=== PATIENT | female | born 1940 | race Caucasian/White ===

== ENCOUNTER 2017-12-23 05:53 | Inpatient (IN) | payer MEDICARE, MEDICAID ==
--- NOTE | 2017-12-23 06:55 | ED Physician Chart ---
ED Chief Complaint/HPI - Patient Information Date Seen:: 12/23/17 Time Seen:: 06:51 Chief Complaint:: agitation History of Present Illness:: 77 yr old male with copd htn anxiety schizo dementia here for increased agitation Allergies:: Allergies Allergy/AdvReac Type Severity Reaction Status Date / Time No Known Allergies Allergy Verified 12/23/17 06:06 Vitals:: Vital Signs - 8 hr 12/23/17 06:00 Temp 96.3 F HR 62 RR 14 BP 174/83 O2 Sat % 97 ED Review of Systems - Review of Systems General/Constitutional: No fever, No chills Head: No headache Eyes: No loss of vision ENT: No earache Neck: No neck pain Cardio Vascular: No chest pain Pulmonary: No SOB GI: No vomiting, No diarrhea G/U: No dysuria Musculoskeletal: No bone or joint pain Endocrine: No polyuria Psychiatric: Prior psych history Hematopoietic: No bruising Allergic/Immuno: No urticaria Neurological: No syncope ED Past Medical History - Past Medical History Past Medical History: HTN, Dyslipidemia, Dementia, Other (schizo) Family Medical History - Family Member Mother History Unknown: Yes ED Physical Exam - Physical Examination General/Constitutional: Well-developed, well-nourished Head: Atraumatic Eyes: Lids, conjuctiva normal ENMT: External ears, nose nl Neck: Nontender Respiratory: Nl effort/Exclusion Cardio Vascular: RRR GI: No organomegaly : No CVA tenderness Extremities: No tenderness or effusion Neuro/Psych: No focal deficits Misc: Normal back ED Assessment - Assessment General Assessment: dementia [facility] ED Septic Shock - . Is Septic Shock (SBP<90, OR Lactate>4 mmol\L) present?: No - <6hrs of presentation: Vital Signs: Vital Signs - 8 hr 12/23/17 06:00 Temp 96.3 F HR 62 RR 14 BP 174/83 O2 Sat % 97 ED Reassessment (Disposition) - Reassessment Reassessment Condition:: Unchanged - Diagnosis Diagnosis:: dementia agitation - Patient Disposition Discharge/Transfer:: Acute Care w/in this hosp Admitted to:: Med/Surg Condition at Disposition:: Stable
[2017-12-23 07:15] LABS: % BASOPHILS 0.3 % (0.0-2.0); % EOSINOPHILS 2.7 % (0.0-5.0); % LYMPHOCYTES 20.5 % (20.0-50.0); % MONOCYTES 7.3 % (2.0-10.0); % NEUTROPHILS 69.2 % (40.0-80.0); EOSINOPHILE ABSOLUTE 0.2 Th/cmm (0.1-0.4); HEMATOCRIT 46.5 % (41.0-60); HEMOGLOBIN 15.8 gm/dL (12-16); LYMPHOCYTE ABSOLUTE 1.5 Th/cmm (1.5-3.0); MEAN CELL VOLUME 83.1 fl (81-100); MEAN CORPUSCULAR HEMOGLOBIN 28.3 pg (27.0-31.0); MEAN PLATELET VOLUME 7.4 fl; MONOCYTE ABSOLUTE 0.5 Th/cmm (0.3-1.0); PLATELET COUNT 239 Th/cmm (150-400); RED CELL DISTRIBUTION WIDTH 13.4 % (11.5-20.0); WHITE BLOOD COUNT 7.2 Th/cmm (4.8-10.8)
[2017-12-23 08:12] LABS: ANION GAP 13.7 (7.0-16.0); BUN - UREA NITROGEN 24 mg/dL (7-25); CALCIUM SERUM 9.2 mg/dL (8.6-10.3); CARBON DIOXIDE 24.9 mEq/L (21.0-31.0); CHLORIDE 105 mEq/L (98-107); CREATININE - SERUM 0.9 mg/dL (0.6-1.2); GLUCOSE 94 mg/dL (70-105); POTASSIUM SERUM 3.6 mEq/L (3.5-5.1); SODIUM SERUM 140 mEq/L (136-145)
[2017-12-23 12:05] VITALS: BP 177/79
[2017-12-23 12:34] LABS: CHOLESTEROL 204 mg/dL (<200); HDL -HIGH DENSITY LIPOPROTEIN 61 mg/dL (23-92); TRIGLYCERIDES 100 mg/dL (<150)
[2017-12-23] MEDS: Calcium Carb/Vit D 500 mg/200 U Tab PO SCH (17:01)
--- NOTE | 2017-12-24 01:42 | Psychiatric Evaluation ---
DATE OF SERVICE: 12/23/2017 PSYCHIATRIC EVALUATION AND EXAMINATION IDENTIFYING DATA: The patient is a 77-year-old woman admitted from [facility]. CHIEF COMPLAINT: "I do not know, my name is not Yolie." HISTORY OF PRESENT ILLNESS: This is the first psychiatric hospitalization to for this patient, who has been admitted over here from [facility] for acute agitation. As per the information, the patient is reported to have been getting easily agitated, screaming, and yelling and the patient has been on psychotropic medications, but the patient has been still having the problems in accepting medications. The patient's sleep and appetite prior to the hospitalization are reported to be poor. Review of the chart indicated that the patient has been getting the Haldol Decanoate along with olanzapine prior to the hospitalization. Even with these medications, the patient has been having difficult time to cope with the stress. PAST PSYCHIATRIC HISTORY: The patient has been denying that she had been on any medications in the past. MEDICAL HISTORY AND PHYSICAL EXAMINATION: Requested to be done by Dr. Gonzalez. SUBSTANCE ABUSE HISTORY: None. PHYSICAL OR SEXUAL ABUSE HISTORY: None. LEGAL PROBLEMS: None at this time. STRENGTH AND ASSETS: The patient is motivated. MENTAL STATUS EXAMINATION: The patient is a 77-year-old woman, thin built, superficially cooperative. Eye contact is poor. Mood is noted to be irritable. Affect is constricted. Insight and judgment at this time are noted to be still impaired. Impulse control is noted to be very poor. Coping skills are also noted to be very poor. The patient has been having difficult time to cope with the stress. The patient is very paranoid at this time and is getting easily agitated. The patient is also having problem with short-term as well as long-term memory deficits. The patient's behavior is a clear danger to self and others. DIAGNOSTIC IMPRESSION: AXIS IA: Schizophrenia, chronic paranoid type. AXIS IB. Dementia and behavioral change, secondary trait. IMMEDIATE TREATMENT PLAN: The patient is going to be observed on inpatient unit, provided with supportive psychotherapy. The patient is going to be closely monitored. Once stabilized, the patient is going to be discharged to [facility] to be followed up on an outpatient basis. [facility]# [id number]
[2017-12-24] MEDS: Calcium Carb/Vit D 500 mg/200 U Tab PO SCH ×2 (08:31→16:15)
--- NOTE | 2017-12-24 09:07 | History and Physical ---
History of Present Illness - HPI Chief Complaint: Increased in agitation HPI: Patient was send from SNF for evaluation due to increased in agitation. Vital Signs: Last Vital Signs Temp 97.1 F 12/24/17 06:35 Pulse 60 12/24/17 08:34 Resp 18 12/24/17 06:35 BP 151/74 12/24/17 08:34 Pulse Ox 96 12/24/17 06:35 Past Medical History Cardiovascular: Report: CAD, HTN Pulmonary: Report: No Pertinent Hx [employer]ING [employer]: Report: Dementia GI: Report: No Pertinent Hx Psych: Report: Schizophrenia Musculoskeletal: Report: No Pertinent Hx Rheumatologic: Report: No pertinent Hx Infectious Disease: Report: No Pertinent Hx Renal/: Report: No Pertinent Hx Dermatology: Report: No Pertinent Hx - Past Surgical History Past Surgical History: No pertinent Hx Family Medical History - Family Member Mother History Unknown: Yes Ethnicity: Unknown Living Status: Unknown Hx Family Cancer: (unknown) Hx Family Coronary Artery Disease: (unknown) Hx Family Congestive Heart Failure: (unknown) Hx Family Hypertension: (unknown) Hx Family Stroke: (unknown) Hx Family Diabetes: (unknown) Hx Family Seizures: (unknown) Hx Family Dementia: (unknown) Hx Family AIDS: (unknown) Hx Family COPD: (unknown) Hx Family Hepatitis: (unknown) Hx Family Psychiatric Problems: (unknown) Hx Family Tuberculosis: (unknown) Social History Smoke: No Alcohol: None Drugs: None Lives: Longterm Domestic Violence: Negative - Medications Home Medications: Home Medication Medication Instructions Recorded Type Amino Acids/Protein Hydrolys 30 ml PO DAILY 12/23/17 History [Pro-Stat Sugar Free 30 ml] Calcium Carbonate/Vitamin D3 1 tab PO BID 12/23/17 History [Oyster Shell 500-Vit D3 200 Tb] Docusate Sodium [Dulcolax Stool 100 mg PO BID 12/23/17 History Softener] Donepezil HCl [Aricept] 10 mg PO HS 12/23/17 History Haloperidol Decanoate [Haldol Dec] 12.5 mg IM [id number] 12/23/17 History Lactose-Reduced Food [Ensure Plus 240 ml PO BID 12/23/17 History 240 ml] Memantine [Namenda] 10 mg PO BID 12/23/17 History OLANZapine [ZyPREXA] 2.5 mg PO HS 12/23/17 History Simvastatin [Zocor] 10 mg PO HS 12/23/17 History amLODIPine Besylate [Norvasc] 5 mg PO DAILY 12/23/17 History - Allergies Allergies/Adverse Reactions: Allergies Allergy/AdvReac Type Severity Reaction Status Date / Time No Known Allergies Allergy Verified 12/23/17 06:06 Review of Systems - Review of Systems Constitutional: Report: No Significant Eyes: Report: No Significant ENT: Report: No Significant Respiratory: Report: No Significant Cardiovascular: Report: No Significant Gastrointestinal: Report: No Significant Genitourinary: Report: No Significant Musculoskeletal: Report: No Significant Skin: Report: No Significant Neurological: Report: No Significant Physical Exam - Physical Exam HEENT: Report: Ears Nose Throat within normal limits Neck: Report: Within normal limits Cardiovascular Systems: Report: Regular, Rate and Rhythm Respiratory: Report: Breath Sounds are within normal limits Abdomen: Report: Non-tender to palpation Back: Report: Inspection of back is within normal limits. Extremities: Report: Non-tender to palpation. Skin: Report: Color of skin is within normal limits Neuro/Psych: Report: Disoriented to name time or place - Lab Results All Lab Results last 24 hours: Laboratory Results - last 24 hr 12/23/17 12/23/17 07:09 12:01 Triglycerides 100 Cholesterol 204 H LDL Cholesterol Direct 111 HDL Cholesterol 61 TSH 2.08 - Assessment Assessment: Patient is awake, alert, calm, confused, not oriented. Dx: increased in agitation, Dementia, Schizophrenia, Dyslipemia. - Plan Plan: Patient is follow by Psychiatry, continue with SNF meds. Will continue to monitor.
--- NOTE | 2017-12-25 01:12 | Progress Notes ---
DATE: 12/24/2017 SUBJECTIVE: Staff was spoken to. The patient is interviewed. Mood is noted to be irritable. Affect is constricted. Insight and judgment at this time are noted to be still impaired. Impulse control is little bit poor. Coping skills are noted to be a little bit poor. The patient is not making much sense. The patient has been having difficult time to cope with the stress. ASSESSMENT: The patient is still grossly psychotic and demented. PLAN: To continue the patient with the supportive therapy and follow up. JOB# [id number]
[2017-12-25] MEDS: Calcium Carb/Vit D 500 mg/200 U Tab PO SCH ×2 (09:16→16:52)
--- NOTE | 2017-12-25 10:23 | General Progress Note ---
Subjective - Review of Systems Service Date: 12/25/17 Subjective: Patient is confused Objective - Results Result Diagrams: 12/23/17 07:09 12/23/17 07:09 Recent Labs: Laboratory Last Values WBC 7.2 Th/cmm (4.8-10.8) 12/23/17 07:09 RBC 5.60 Mil/cmm (3.80-5.20) H 12/23/17 07:09 Hgb 15.8 gm/dL (12-16) 12/23/17 07:09 Hct 46.5 % (41.0-60) 12/23/17 07:09 MCV 83.1 fl (81-100) 12/23/17 07:09 MCH 28.3 pg (27.0-31.0) 12/23/17 07:09 MCHC Differential 34.0 pg (28.0-36.0) 12/23/17 07:09 RDW 13.4 % (11.5-20.0) 12/23/17 07:09 Plt Count 239 Th/cmm (150-400) 12/23/17 07:09 MPV 7.4 fl 12/23/17 07:09 Neutrophils % 69.2 % (40.0-80.0) 12/23/17 07:09 Lymphocytes % 20.5 % (20.0-50.0) 12/23/17 07:09 Monocytes % 7.3 % (2.0-10.0) 12/23/17 07:09 Eosinophils % 2.7 % (0.0-5.0) 12/23/17 07:09 Basophils % 0.3 % (0.0-2.0) 12/23/17 07:09 Sodium 140 mEq/L (136-145) 12/23/17 07:09 Potassium 3.6 mEq/L (3.5-5.1) 12/23/17 07:09 Chloride 105 mEq/L (98-107) 12/23/17 07:09 Carbon Dioxide 24.9 mEq/L (21.0-31.0) 12/23/17 07:09 Anion Gap 13.7 (7.0-16.0) 12/23/17 07:09 BUN 24 mg/dL (7-25) 12/23/17 07:09 Creatinine 0.9 mg/dL (0.6-1.2) 12/23/17 07:09 Est GFR ( Amer) TNP 12/23/17 07:09 Est GFR (Non-Af Amer) TNP 12/23/17 07:09 BUN/Creatinine Ratio 26.7 12/23/17 07:09 Glucose 94 mg/dL (70-105) 12/23/17 07:09 Calcium 9.2 mg/dL (8.6-10.3) 12/23/17 07:09 Triglycerides 100 mg/dL (<150) 12/23/17 12:01 Cholesterol 204 mg/dL (<200) H 12/23/17 12:01 LDL Cholesterol Direct 111 mg/dL (75-193) 12/23/17 12:01 HDL Cholesterol 61 mg/dL (23-92) 12/23/17 12:01 TSH 2.08 uIU/ml (0.34-5.60) 12/23/17 07:09 - Physical Exam Vitals and I&O: Vital Signs Temp 97 F 12/25/17 06:47 Pulse 60 12/25/17 06:47 Resp 19 12/25/17 06:47 BP 149/82 12/25/17 06:47 Pulse Ox 94 12/25/17 06:47 Intake & Output 12/24/17 12/25/17 12/25/17 18:59 06:59 18:59 Intake Total 900 120 Output Total 3 Balance 897 120 Intake: Oral 900 120 Output: Urine 3 Stool 0 Other: # Voids 3 Active Medications: Current Medications Amlodipine Besylate (Norvasc) 5 mg PO DAILY [facility] Stop: 02/22/18 08:59 Last Admin: 12/24/17 08:34 Dose: 5 mg Calcium/Vitamin D (Oscal W/Vitamin D) 1 tab PO BID [facility] Stop: 02/21/18 16:59 Last Admin: 12/25/17 09:16 Dose: 1 tab Docusate Sodium (Colace) 100 mg PO BID [facility] Stop: 02/21/18 16:59 Last Admin: 12/25/17 09:16 Dose: 100 mg Haloperidol Decanoate (Haldol Dec) 12.5 mg IM [id number] [facility]; Protocol Stop: 03/06/18 08:59 Memantine (Namenda) 10 mg PO BID [facility] Stop: 02/21/18 16:59 Last Admin: 12/25/17 09:16 Dose: 10 mg Olanzapine (Zyprexa) 2.5 mg PO HS [facility]; Protocol Stop: 02/21/18 20:59 Last Admin: 12/24/17 21:00 Dose: 2.5 mg Simvastatin (Zocor) 10 mg PO HS [facility]HAEL; Protocol Stop: 02/21/18 20:59 Last Admin: 12/24/17 21:00 Dose: 10 mg General: Alert HEENT: Atraumatic Neck: Supple Cardiovascular: Regular rate Abdomen: Bowel sounds Extremities: Other (No edema) Neurological: Other (Unestable gait) Skin: Other (Warm and dry) Psych/Mental Status: Other (Confused) Assessment/Plan - Assessment Assessment: Patient is awake, alert, calm, confused, not oriented. Dx: increased in agitation, Dementia, Schizophrenia, Dyslipemia. - Plan Plan: Patient is follow by Psychiatry, continue with SNF meds. Will continue to monitor.
--- NOTE | 2017-12-25 13:15 | Progress Notes ---
DATE: 12/25/2017 SUBJECTIVE: Staff was spoken to. The patient is interviewed. Mood is noted to be irritable. Affect is constricted. The patient has short-term as well as long-term memory deficits. Coping skills are noted to still poor at this time. The patient has paranoia. The patient is isolative, withdrawn with no interest in participating in any of the groups. The patient is not ready to be discharged to a lower level of care yet. JOB# [id number]
--- NOTE | 2017-12-26 01:44 | Consultation ---
DATE OF CONSULTATION: 12/24/2017 REFERRING PHYSICIAN: Dr. Kumar. TYPE OF CONSULTATION: Psychology. HISTORY OF PRESENT ILLNESS: The patient is a 77-year-old female. The following is by review of the medical record and by patient's self report. The patient is being admitted from [facility] due to acute agitation. The staff at the patient's facility report the patient has been getting easily agitated with yelling episodes and refusing medications. Upon interview, the patient states that she does not understand why she is being hospitalized. The patient denied any suicidal ideation, plan or intention. The patient presents as confused and disoriented. PAST MEDICAL HISTORY: Please see history and physical by Dr. Gonzalez. PAST PSYCHIATRIC HISTORY: Records are unavailable. SUBSTANCE ABUSE HISTORY: The patient denies any history. PSYCHOSOCIAL HISTORY: The patient did not answer questions about occupational, educational history or christianity affiliation. The patient did not answer questions about history of physical or sexual abuse. The patient states no current legal problems. The patient did not answer questions about family relationships or her support system. MENTAL STATUS EXAMINATION: The patient appears to be her stated age. The patient is frail with poor eye contact. Attitude is superficially cooperative. Mood is irritable. Affect is constricted. Speech is delayed. Thought process shows to be confused. The patient denied any auditory or visual hallucinations or delusions; however, the patient is verbalizing possible paranoid ideation. The patient's behavior is easily agitated. The patient denied any suicidal ideation, plan or intention. Impulse control is limited. Concentration is poor. Sensorium is alert and oriented to self only. The patient did not participate in the memory assessment; however, immediate and short term memory appeared to be impaired. The patient did not participate in the interpretation of proverbs. Insight is poor. Judgment is compromised. DIAGNOSTIC IMPRESSION: AXIS I: 1. Schizophrenia, chronic, paranoid type. 2. Dementia with behavioral disturbance. AXIS II: Deferred. AXIS III: Per Dr. Gonzalez. TREATMENT PLAN: The patient has been seen by Dr. Kumar for psychiatric evaluation and for the management of the patient's psychotropic medications. We will provide supportive psychotherapy to include reality orientation, differentiation and integration. We will provide de-escalation as well as stress management to increase the patient's frustration tolerance as well as to decrease the patient's agitation. We will encourage the patient to verbalize her concerns versus verbally acting out. We will encourage the patient to be able to demonstrate emotional and self-regulation prior to her discharge. We will provide coping strategies for phase of life issues as well as for chronic severe mental illness. Thank you, Dr. Kumar, for this consult and the opportunity to participate in this patient's care. JOB# [id number] SHAN
--- NOTE | 2017-12-26 08:57 | General Progress Note ---
Subjective - Review of Systems Service Date: 12/26/17 Subjective: Patient is confused Objective - Results Result Diagrams: 12/23/17 07:09 12/23/17 07:09 Recent Labs: Laboratory Last Values WBC 7.2 Th/cmm (4.8-10.8) 12/23/17 07:09 RBC 5.60 Mil/cmm (3.80-5.20) H 12/23/17 07:09 Hgb 15.8 gm/dL (12-16) 12/23/17 07:09 Hct 46.5 % (41.0-60) 12/23/17 07:09 MCV 83.1 fl (81-100) 12/23/17 07:09 MCH 28.3 pg (27.0-31.0) 12/23/17 07:09 MCHC Differential 34.0 pg (28.0-36.0) 12/23/17 07:09 RDW 13.4 % (11.5-20.0) 12/23/17 07:09 Plt Count 239 Th/cmm (150-400) 12/23/17 07:09 MPV 7.4 fl 12/23/17 07:09 Neutrophils % 69.2 % (40.0-80.0) 12/23/17 07:09 Lymphocytes % 20.5 % (20.0-50.0) 12/23/17 07:09 Monocytes % 7.3 % (2.0-10.0) 12/23/17 07:09 Eosinophils % 2.7 % (0.0-5.0) 12/23/17 07:09 Basophils % 0.3 % (0.0-2.0) 12/23/17 07:09 Sodium 140 mEq/L (136-145) 12/23/17 07:09 Potassium 3.6 mEq/L (3.5-5.1) 12/23/17 07:09 Chloride 105 mEq/L (98-107) 12/23/17 07:09 Carbon Dioxide 24.9 mEq/L (21.0-31.0) 12/23/17 07:09 Anion Gap 13.7 (7.0-16.0) 12/23/17 07:09 BUN 24 mg/dL (7-25) 12/23/17 07:09 Creatinine 0.9 mg/dL (0.6-1.2) 12/23/17 07:09 Est GFR ( Amer) TNP 12/23/17 07:09 Est GFR (Non-Af Amer) TNP 12/23/17 07:09 BUN/Creatinine Ratio 26.7 12/23/17 07:09 Glucose 94 mg/dL (70-105) 12/23/17 07:09 Calcium 9.2 mg/dL (8.6-10.3) 12/23/17 07:09 Triglycerides 100 mg/dL (<150) 12/23/17 12:01 Cholesterol 204 mg/dL (<200) H 12/23/17 12:01 LDL Cholesterol Direct 111 mg/dL (75-193) 12/23/17 12:01 HDL Cholesterol 61 mg/dL (23-92) 12/23/17 12:01 TSH 2.08 uIU/ml (0.34-5.60) 12/23/17 07:09 - Physical Exam Vitals and I&O: Vital Signs Temp 97.9 F 12/26/17 06:51 Pulse 56 12/26/17 06:51 Resp 19 12/26/17 06:51 BP 156/74 12/26/17 06:51 Pulse Ox 97 12/26/17 06:51 Intake & Output 12/25/17 12/26/17 12/26/17 18:59 06:59 18:59 Intake Total 960 480 Balance 960 480 Intake: Oral 960 480 Other: # Voids 4 1 # Bowel Movements 1 Active Medications: Current Medications Amlodipine Besylate (Norvasc) 5 mg PO DAILY [facility] Stop: 02/22/18 08:59 Last Admin: 12/25/17 12:49 Dose: Not Given Calcium/Vitamin D (Oscal W/Vitamin D) 1 tab PO BID [facility] Stop: 02/21/18 16:59 Last Admin: 12/25/17 16:52 Dose: 1 tab Docusate Sodium (Colace) 100 mg PO BID [facility] Stop: 02/21/18 16:59 Last Admin: 12/25/17 16:52 Dose: 100 mg Haloperidol Decanoate (Haldol Dec) 12.5 mg IM [id number] [facility]; Protocol Stop: 03/06/18 08:59 Memantine (Namenda) 10 mg PO BID [facility] Stop: 02/21/18 16:59 Last Admin: 12/25/17 16:52 Dose: 10 mg Olanzapine (Zyprexa) 2.5 mg PO HS [facility]; Protocol Stop: 02/21/18 20:59 Last Admin: 12/25/17 20:51 Dose: 2.5 mg Simvastatin (Zocor) 10 mg PO HS [facility]; Protocol Stop: 02/21/18 20:59 Last Admin: 12/25/17 20:51 Dose: 10 mg General: Alert HEENT: Atraumatic Neck: Supple Cardiovascular: Regular rate Abdomen: Bowel sounds Extremities: Other (No edema) Neurological: Other (Unestable gait) Skin: Other (Warm and dry) Psych/Mental Status: Other (Confused) Assessment/Plan - Assessment Assessment: Patient is awake, alert, calm, confused, not oriented. Dx: increased in agitation, Dementia, Schizophrenia, Dyslipemia. - Plan Plan: Patient is follow by Psychiatry, continue with SNF meds. Will continue to monitor. Nutritional Asmnt/Malnutr-PDOC - Dietary Evaluation Malnutrition Findings (Please click <Entered> for more info): Nutritional Asmnt/Malnutrition Start: 12/25/17 13: 59 Text: Status: Complete Freq: Protocol: Document 12/25/17 13:59 OBIE (Rec: 12/25/17 14:09 OBIE [email or web address]) Nutritional Asmnt/Malnutrition Patient General Information Nutritional Screening Moderate Risk Diagnosis psychosis Pertinent Medical Hx/Surgical Hx HTN, dyslipidemia, dementia, schizophrenia, CAD Subjective Information Pt eating lunch in bed at time of visit. Pt alert to self and able to self-feed at a slow pace. Nursing noted PO intake: 75%, meeting 100% of nutritional needs. Current Diet Order/ Nutrition Support [facility] soft ground Pertinent Medications oscal w/ vit d, colace, zocor Pertinent Labs 12/23: cholesterol 204 Nutritional Hx/Data Height 1.63 m Height (Calculated Centimeters) 162.6 Current Weight (lbs) 63.503 kg Weight (Calculated Kilograms) 63.5 Weight (Calculated Grams) 42741.9 [place] Body Weight 120 lb Body Mass Index (BMI) 24.0 Weight Status Approriate GI Symptoms GI Symptoms None Last BM none noted Difficult in: None Food Allergies No Skin Integrity/Comment: jose lees 18 Current %PO Good (75-100%) Estimated Nutritional Goals BEE in Kcals: Using Current wt Calories/Kcals/Kg 25-30 Kcals Calculated 6352-0581 Protein: Using Current wt Protein g/k.0 Protein Calculated 64 g Fluid: ml 9080-3854 (1 ml/kcal) Nutritional Problem No current Nutrition Prob Problem no nutrition dx at this time Malnutrition Alert Is there a minimum of two criteria No selected? Query Text:Check all the applicable criteria. A minimum of two criteria are recommended for diagnosis of either severe or non-severe malnutrition. Malnutrition Related to Morbid Obesity Malnutrition related to morbid obesity No Intervention/Recommendation Comments 1. Continue with [facility] soft ground diet as ordered. 2. Monitor PO intake, wt, labs and skin integrity 3. F/U as low risk in 7 days, 01/01 Expected Outcomes/Goals Expected Outcomes/Goals 1. PO intake to meet at least 75% of nutritional needs. 2. Wt stability, skin to remain intact, labs to approach WNL. REviewed by Rachna Malik RD
[2017-12-26] MEDS: Calcium Carb/Vit D 500 mg/200 U Tab PO SCH ×2 (09:30→18:00)
--- NOTE | 2017-12-26 21:14 | Progress Notes ---
DATE: 12/26/2017 PSYCHIATRIC PROGRESS NOTE SUBJECTIVE: Staff was spoken to. The patient is interviewed. Mood is noted to be irritable. Affect is constricted. The patient is stating that she was not able to sleep last night. The patient has been isolative and withdrawn at this time. No side effects to the medications are noted. The patient is stating there is nothing wrong with her and she needs to be discharged. The patient is currently on Seroquel and has been able to tolerate the medication. ASSESSMENT: The patient is still paranoid and demented. PLAN: To continue the patient with the supportive therapy. Encouraged the patient to verbalize the concerns rather than to act out. JOB# [id number]
[2017-12-27] MEDS: Calcium Carb/Vit D 500 mg/200 U Tab PO SCH ×2 (08:46→16:26)
--- NOTE | 2017-12-27 10:22 | General Progress Note ---
Subjective - Review of Systems Service Date: 12/27/17 Subjective: Patient is confused, calm. Objective - Results Result Diagrams: 12/23/17 07:09 12/23/17 07:09 Recent Labs: Laboratory Last Values WBC 7.2 Th/cmm (4.8-10.8) 12/23/17 07:09 RBC 5.60 Mil/cmm (3.80-5.20) H 12/23/17 07:09 Hgb 15.8 gm/dL (12-16) 12/23/17 07:09 Hct 46.5 % (41.0-60) 12/23/17 07:09 MCV 83.1 fl (81-100) 12/23/17 07:09 MCH 28.3 pg (27.0-31.0) 12/23/17 07:09 MCHC Differential 34.0 pg (28.0-36.0) 12/23/17 07:09 RDW 13.4 % (11.5-20.0) 12/23/17 07:09 Plt Count 239 Th/cmm (150-400) 12/23/17 07:09 MPV 7.4 fl 12/23/17 07:09 Neutrophils % 69.2 % (40.0-80.0) 12/23/17 07:09 Lymphocytes % 20.5 % (20.0-50.0) 12/23/17 07:09 Monocytes % 7.3 % (2.0-10.0) 12/23/17 07:09 Eosinophils % 2.7 % (0.0-5.0) 12/23/17 07:09 Basophils % 0.3 % (0.0-2.0) 12/23/17 07:09 Sodium 140 mEq/L (136-145) 12/23/17 07:09 Potassium 3.6 mEq/L (3.5-5.1) 12/23/17 07:09 Chloride 105 mEq/L (98-107) 12/23/17 07:09 Carbon Dioxide 24.9 mEq/L (21.0-31.0) 12/23/17 07:09 Anion Gap 13.7 (7.0-16.0) 12/23/17 07:09 BUN 24 mg/dL (7-25) 12/23/17 07:09 Creatinine 0.9 mg/dL (0.6-1.2) 12/23/17 07:09 Est GFR ( Amer) TNP 12/23/17 07:09 Est GFR (Non-Af Amer) TNP 12/23/17 07:09 BUN/Creatinine Ratio 26.7 12/23/17 07:09 Glucose 94 mg/dL (70-105) 12/23/17 07:09 Calcium 9.2 mg/dL (8.6-10.3) 12/23/17 07:09 Triglycerides 100 mg/dL (<150) 12/23/17 12:01 Cholesterol 204 mg/dL (<200) H 12/23/17 12:01 LDL Cholesterol Direct 111 mg/dL (75-193) 12/23/17 12:01 HDL Cholesterol 61 mg/dL (23-92) 12/23/17 12:01 TSH 2.08 uIU/ml (0.34-5.60) 12/23/17 07:09 - Physical Exam Vitals and I&O: Vital Signs Temp 97.1 F 12/27/17 07:00 Pulse 63 12/27/17 08:46 Resp 18 12/27/17 07:00 BP 120/52 12/27/17 08:46 Pulse Ox 94 12/27/17 07:00 Intake & Output 12/26/17 12/27/17 12/27/17 18:59 06:59 18:59 Intake Total 1600 Balance 1600 Intake: Oral 1600 Other: # Voids 3 # Bowel Movements 0 Active Medications: Current Medications Amlodipine Besylate (Norvasc) 5 mg PO DAILY [facility] Stop: 02/22/18 08:59 Last Admin: 12/27/17 08:46 Dose: Not Given Calcium/Vitamin D (Oscal W/Vitamin D) 1 tab PO BID [facility] Stop: 02/21/18 16:59 Last Admin: 12/27/17 08:46 Dose: 1 tab Docusate Sodium (Colace) 100 mg PO BID [facility] Stop: 02/21/18 16:59 Last Admin: 12/27/17 08:45 Dose: 100 mg Haloperidol Decanoate (Haldol Dec) 12.5 mg IM [id number] [facility]; Protocol Stop: 03/06/18 08:59 Memantine (Namenda) 10 mg PO BID [facility] Stop: 02/21/18 16:59 Last Admin: 12/27/17 08:46 Dose: 10 mg Olanzapine (Zyprexa) 2.5 mg PO HS [facility]; Protocol Stop: 02/21/18 20:59 Last Admin: 12/26/17 20:56 Dose: 2.5 mg Simvastatin (Zocor) 10 mg PO HS [facility]; Protocol Stop: 02/21/18 20:59 Last Admin: 12/26/17 20:56 Dose: 10 mg General: Alert HEENT: Atraumatic Neck: Supple Cardiovascular: Regular rate Abdomen: Bowel sounds Extremities: Other (No edema) Neurological: Other (Unestable gait) Skin: Other (Warm and dry) Psych/Mental Status: Other (Confused) Assessment/Plan - Assessment Assessment: Patient is awake, alert, calm, confused, not oriented. Dx: increased in agitation, Dementia, Schizophrenia, Dyslipemia. - Plan Plan: Patient is follow by Psychiatry, continue with SNF meds. Will continue to monitor. Nutritional Asmnt/Malnutr-PDOC - Dietary Evaluation Malnutrition Findings (Please click <Entered> for more info): Nutritional Asmnt/Malnutrition Start: 12/25/17 13: 59 Text: Status: Complete Freq: Protocol: Document 12/25/17 13:59 [email or web address] (Rec: 12/25/17 14:09 [email or web address] [email or web address]) Nutritional Asmnt/Malnutrition Patient General Information Nutritional Screening Moderate Risk Diagnosis psychosis Pertinent Medical Hx/Surgical Hx HTN, dyslipidemia, dementia, schizophrenia, CAD Subjective Information Pt eating lunch in bed at time of visit. Pt alert to self and able to self-feed at a slow pace. Nursing noted PO intake: 75%, meeting 100% of nutritional needs. Current Diet Order/ Nutrition Support [facility] soft [facility] Pertinent Medications oscal w/ vit d, colace, zocor Pertinent Labs 12/23: cholesterol 204 Nutritional Hx/Data Height 1.63 m Height (Calculated Centimeters) 162.6 Current Weight (lbs) 63.503 kg Weight (Calculated Kilograms) 63.5 Weight (Calculated Grams) 60726.9 [place] Body Weight 120 lb Body Mass Index (BMI) 24.0 Weight Status Approriate GI Symptoms GI Symptoms None Last BM none noted Difficult in: None Food Allergies No Skin Integrity/Comment: intact, jose 18 Current %PO Good (75-100%) Estimated Nutritional Goals BEE in Kcals: Using Current wt Calories/Kcals/Kg 25-30 Kcals Calculated 6200-7544 Protein: Using Current wt Protein g/k.0 Protein Calculated 64 g Fluid: ml 3044-9069 (1 ml/kcal) Nutritional Problem No current Nutrition Prob Problem no nutrition dx at this time Malnutrition Alert Is there a minimum of two criteria No selected? Query Text:Check all the applicable criteria. A minimum of two criteria are recommended for diagnosis of either severe or non-severe malnutrition. Malnutrition Related to Morbid Obesity Malnutrition related to morbid obesity No Intervention/Recommendation Comments 1. Continue with [facility] soft [facility] diet as ordered. 2. Monitor PO intake, wt, labs and skin integrity 3. F/U as low risk in 7 days, 01/01 Expected Outcomes/Goals Expected Outcomes/Goals 1. PO intake to meet at least 75% of nutritional needs. 2. Wt stability, skin to remain intact, labs to approach WNL. REviewed by Rachna Malik RD
--- NOTE | 2017-12-28 05:06 | Progress Notes ---
DATE: 12/27/2017 SUBJECTIVE: Staff was spoken to. The patient is interviewed. Mood is noted to a bit irritable. Affect is constricted. The patient is isolative and withdrawn. Insight and judgment noted to be still impaired. Impulse control is noted to be poor. Coping skills are noted to be very poor. The patient has been having difficult time to cope with the stress. No side effects to the medications are noted. The patient is reluctant to participate in any of the groups. The patient has poor short-term as well as long-term memory deficits. ASSESSMENT: The patient is still paranoid and demented. PLAN: To continue the patient with the supportive therapy and followup. JOB# [id number]
[2017-12-28] MEDS: Calcium Carb/Vit D 500 mg/200 U Tab PO SCH ×2 (08:54→16:39)
--- NOTE | 2017-12-28 10:53 | General Progress Note ---
Subjective - Review of Systems Service Date: 12/28/17 Subjective: Patient is confused, calm. Objective - Results Result Diagrams: 12/23/17 07:09 12/23/17 07:09 Recent Labs: Laboratory Last Values WBC 7.2 Th/cmm (4.8-10.8) 12/23/17 07:09 RBC 5.60 Mil/cmm (3.80-5.20) H 12/23/17 07:09 Hgb 15.8 gm/dL (12-16) 12/23/17 07:09 Hct 46.5 % (41.0-60) 12/23/17 07:09 MCV 83.1 fl (81-100) 12/23/17 07:09 MCH 28.3 pg (27.0-31.0) 12/23/17 07:09 MCHC Differential 34.0 pg (28.0-36.0) 12/23/17 07:09 RDW 13.4 % (11.5-20.0) 12/23/17 07:09 Plt Count 239 Th/cmm (150-400) 12/23/17 07:09 MPV 7.4 fl 12/23/17 07:09 Neutrophils % 69.2 % (40.0-80.0) 12/23/17 07:09 Lymphocytes % 20.5 % (20.0-50.0) 12/23/17 07:09 Monocytes % 7.3 % (2.0-10.0) 12/23/17 07:09 Eosinophils % 2.7 % (0.0-5.0) 12/23/17 07:09 Basophils % 0.3 % (0.0-2.0) 12/23/17 07:09 Sodium 140 mEq/L (136-145) 12/23/17 07:09 Potassium 3.6 mEq/L (3.5-5.1) 12/23/17 07:09 Chloride 105 mEq/L (98-107) 12/23/17 07:09 Carbon Dioxide 24.9 mEq/L (21.0-31.0) 12/23/17 07:09 Anion Gap 13.7 (7.0-16.0) 12/23/17 07:09 BUN 24 mg/dL (7-25) 12/23/17 07:09 Creatinine 0.9 mg/dL (0.6-1.2) 12/23/17 07:09 Est GFR ( Amer) TNP 12/23/17 07:09 Est GFR (Non-Af Amer) TNP 12/23/17 07:09 BUN/Creatinine Ratio 26.7 12/23/17 07:09 Glucose 94 mg/dL (70-105) 12/23/17 07:09 Calcium 9.2 mg/dL (8.6-10.3) 12/23/17 07:09 Triglycerides 100 mg/dL (<150) 12/23/17 12:01 Cholesterol 204 mg/dL (<200) H 12/23/17 12:01 LDL Cholesterol Direct 111 mg/dL (75-193) 12/23/17 12:01 HDL Cholesterol 61 mg/dL (23-92) 12/23/17 12:01 TSH 2.08 uIU/ml (0.34-5.60) 12/23/17 07:09 - Physical Exam Vitals and I&O: Vital Signs Temp 97.0 F 12/28/17 06:21 Pulse 58 12/28/17 08:54 Resp 18 12/28/17 06:21 BP 136/73 12/28/17 08:54 Pulse Ox 94 12/28/17 06:21 Intake & Output 12/27/17 12/28/17 12/28/17 18:59 06:59 18:59 Intake Total 960 Balance 960 Intake: Oral 960 Other: # Voids 4 # Bowel Movements 1 Active Medications: Current Medications Amlodipine Besylate (Norvasc) 5 mg PO DAILY [facility] Stop: 02/22/18 08:59 Last Admin: 12/28/17 08:54 Dose: 5 mg Calcium/Vitamin D (Oscal W/Vitamin D) 1 tab PO BID [facility] Stop: 02/21/18 16:59 Last Admin: 12/28/17 08:54 Dose: 1 tab Docusate Sodium (Colace) 100 mg PO BID [facility] Stop: 02/21/18 16:59 Last Admin: 12/28/17 08:54 Dose: 100 mg Haloperidol Decanoate (Haldol Dec) 12.5 mg IM [id number] [facility]; Protocol Stop: 03/06/18 08:59 Memantine (Namenda) 10 mg PO BID [facility] Stop: 02/21/18 16:59 Last Admin: 12/28/17 08:54 Dose: 10 mg Olanzapine (Zyprexa) 2.5 mg PO HS [facility]; Protocol Stop: 02/21/18 20:59 Last Admin: 12/27/17 20:17 Dose: 2.5 mg Simvastatin (Zocor) 10 mg PO HS [facility]; Protocol Stop: 02/21/18 20:59 Last Admin: 12/27/17 20:17 Dose: 10 mg General: Alert HEENT: Atraumatic Neck: Supple Cardiovascular: Regular rate Abdomen: Bowel sounds Extremities: Other (No edema) Neurological: Other (Unestable gait) Skin: Other (Warm and dry) Psych/Mental Status: Other (Confused) Assessment/Plan - Assessment Assessment: Patient is awake, alert, calm, confused, not oriented. Dx: increased in agitation, Dementia, Schizophrenia, Dyslipemia. - Plan Plan: Patient is follow by Psychiatry, continue with SNF meds. Will continue to monitor. Nutritional Asmnt/Malnutr-PDOC - Dietary Evaluation Malnutrition Findings (Please click <Entered> for more info): Nutritional Asmnt/Malnutrition Start: 12/25/17 13: 59 Text: Status: Complete Freq: Protocol: Document 12/25/17 13:59 OBIE (Rec: 12/25/17 14:09 [email or web address] [email or web address]) Nutritional Asmnt/Malnutrition Patient General Information Nutritional Screening Moderate Risk Diagnosis psychosis Pertinent Medical Hx/Surgical Hx HTN, dyslipidemia, dementia, schizophrenia, CAD Subjective Information Pt eating lunch in bed at time of visit. Pt alert to self and able to self-feed at a slow pace. Nursing noted PO intake: 75%, meeting 100% of nutritional needs. Current Diet Order/ Nutrition Support [facility] Pertinent Medications oscal w/ vit d, colace, zocor Pertinent Labs 12/23: cholesterol 204 Nutritional Hx/Data Height 1.63 m Height (Calculated Centimeters) 162.6 Current Weight (lbs) 63.503 kg Weight (Calculated Kilograms) 63.5 Weight (Calculated Grams) 55800.9 [place] Body Weight 120 lb Body Mass Index (BMI) 24.0 Weight Status Approriate GI Symptoms GI Symptoms None Last BM none noted Difficult in: None Food Allergies No Skin Integrity/Comment: yoana, jose 18 Current %PO Good (75-100%) Estimated Nutritional Goals BEE in Kcals: Using Current wt Calories/Kcals/Kg 25-30 Kcals Calculated 9695-6684 Protein: Using Current wt Protein g/k.0 Protein Calculated 64 g Fluid: ml 7610-8694 (1 ml/kcal) Nutritional Problem No current Nutrition Prob Problem no nutrition dx at this time Malnutrition Alert Is there a minimum of two criteria No selected? Query Text:Check all the applicable criteria. A minimum of two criteria are recommended for diagnosis of either severe or non-severe malnutrition. Malnutrition Related to Morbid Obesity Malnutrition related to morbid obesity No Intervention/Recommendation Comments 1. Continue with [facility] soft [facility] diet as ordered. 2. Monitor PO intake, wt, labs and skin integrity 3. F/U as low risk in 7 days, 01/01 Expected Outcomes/Goals Expected Outcomes/Goals 1. PO intake to meet at least 75% of nutritional needs. 2. Wt stability, skin to remain intact, labs to approach WNL. REviewed by Rachna Malik RD
--- NOTE | 2017-12-28 21:26 | Progress Notes ---
DATE: 12/28/2017 PSYCHIATRIC PROGRESS NOTE SUBJECTIVE: Staff was spoken to. The patient is interviewed. Mood is noted to be anxious. The patient is isolative and withdrawn, continues to have paranoid delusions. The patient is currently on olanzapine 2.5 mg at bedtime and has been able to tolerate the medications. No side effects to the medications are noted. The patient also has been receiving the haloperidol on biweekly basis. ASSESSMENT: The patient is still paranoid. PLAN: To continue the patient with the supportive therapy and followup. JOB# [id number]
[2017-12-29] MEDS: Calcium Carb/Vit D 500 mg/200 U Tab PO SCH ×2 (08:31→17:37)
--- NOTE | 2017-12-29 08:52 | General Progress Note ---
Subjective - Review of Systems Service Date: 12/29/17 Subjective: Patient is confused, calm. Objective - Results Result Diagrams: 12/23/17 07:09 12/23/17 07:09 Recent Labs: Laboratory Last Values WBC 7.2 Th/cmm (4.8-10.8) 12/23/17 07:09 RBC 5.60 Mil/cmm (3.80-5.20) H 12/23/17 07:09 Hgb 15.8 gm/dL (12-16) 12/23/17 07:09 Hct 46.5 % (41.0-60) 12/23/17 07:09 MCV 83.1 fl (81-100) 12/23/17 07:09 MCH 28.3 pg (27.0-31.0) 12/23/17 07:09 MCHC Differential 34.0 pg (28.0-36.0) 12/23/17 07:09 RDW 13.4 % (11.5-20.0) 12/23/17 07:09 Plt Count 239 Th/cmm (150-400) 12/23/17 07:09 MPV 7.4 fl 12/23/17 07:09 Neutrophils % 69.2 % (40.0-80.0) 12/23/17 07:09 Lymphocytes % 20.5 % (20.0-50.0) 12/23/17 07:09 Monocytes % 7.3 % (2.0-10.0) 12/23/17 07:09 Eosinophils % 2.7 % (0.0-5.0) 12/23/17 07:09 Basophils % 0.3 % (0.0-2.0) 12/23/17 07:09 Sodium 140 mEq/L (136-145) 12/23/17 07:09 Potassium 3.6 mEq/L (3.5-5.1) 12/23/17 07:09 Chloride 105 mEq/L (98-107) 12/23/17 07:09 Carbon Dioxide 24.9 mEq/L (21.0-31.0) 12/23/17 07:09 Anion Gap 13.7 (7.0-16.0) 12/23/17 07:09 BUN 24 mg/dL (7-25) 12/23/17 07:09 Creatinine 0.9 mg/dL (0.6-1.2) 12/23/17 07:09 Est GFR ( Amer) TNP 12/23/17 07:09 Est GFR (Non-Af Amer) TNP 12/23/17 07:09 BUN/Creatinine Ratio 26.7 12/23/17 07:09 Glucose 94 mg/dL (70-105) 12/23/17 07:09 Calcium 9.2 mg/dL (8.6-10.3) 12/23/17 07:09 Triglycerides 100 mg/dL (<150) 12/23/17 12:01 Cholesterol 204 mg/dL (<200) H 12/23/17 12:01 LDL Cholesterol Direct 111 mg/dL (75-193) 12/23/17 12:01 HDL Cholesterol 61 mg/dL (23-92) 12/23/17 12:01 TSH 2.08 uIU/ml (0.34-5.60) 12/23/17 07:09 - Physical Exam Vitals and I&O: Vital Signs Temp 99.4 F 12/29/17 06:13 Pulse 70 12/29/17 08:32 Resp 18 12/29/17 06:13 BP 136/67 12/29/17 08:32 Pulse Ox 93 12/29/17 06:13 Intake & Output 12/28/17 12/29/17 12/29/17 18:59 06:59 18:59 Intake Total 240 Balance 240 Intake: Oral 240 Other: # Voids 2 Active Medications: Current Medications Amlodipine Besylate (Norvasc) 5 mg PO DAILY [facility] Stop: 02/22/18 08:59 Last Admin: 12/29/17 08:32 Dose: 5 mg Calcium/Vitamin D (Oscal W/Vitamin D) 1 tab PO BID [facility] Stop: 02/21/18 16:59 Last Admin: 12/29/17 08:31 Dose: 1 tab Docusate Sodium (Colace) 100 mg PO BID [facility] Stop: 02/21/18 16:59 Last Admin: 12/29/17 08:32 Dose: 100 mg Haloperidol Decanoate (Haldol Dec) 12.5 mg IM [id number] [facility]; Protocol Stop: 03/06/18 08:59 Memantine (Namenda) 10 mg PO BID [facility] Stop: 02/21/18 16:59 Last Admin: 12/29/17 08:32 Dose: 10 mg Olanzapine (Zyprexa) 2.5 mg PO HS [facility]; Protocol Stop: 02/21/18 20:59 Last Admin: 12/28/17 20:56 Dose: 2.5 mg Simvastatin (Zocor) 10 mg PO HS [facility]; Protocol Stop: 02/21/18 20:59 Last Admin: 12/28/17 20:56 Dose: 10 mg General: Alert HEENT: Atraumatic Neck: Supple Cardiovascular: Regular rate Abdomen: Bowel sounds Extremities: Other (No edema) Neurological: Other (Unestable gait) Skin: Other (Warm and dry) Psych/Mental Status: Other (Confused) Assessment/Plan - Assessment Assessment: Patient is awake, alert, calm, confused, not oriented. Dx: increased in agitation, Dementia, Schizophrenia, Dyslipemia. - Plan Plan: Patient is follow by Psychiatry, continue with SNF meds. Will continue to monitor. Nutritional Asmnt/Malnutr-PDOC - Dietary Evaluation Malnutrition Findings (Please click <Entered> for more info): Nutritional Asmnt/Malnutrition Start: 12/25/17 13: 59 Text: Status: Complete Freq: Protocol: Document 12/25/17 13:59 YOSVANYALEXUS (Rec: 12/25/17 14:09 OBIE [email or web address]) Nutritional Asmnt/Malnutrition Patient General Information Nutritional Screening Moderate Risk Diagnosis psychosis Pertinent Medical Hx/Surgical Hx HTN, dyslipidemia, dementia, schizophrenia, CAD Subjective Information Pt eating lunch in bed at time of visit. Pt alert to self and able to self-feed at a slow pace. Nursing noted PO intake: 75%, meeting 100% of nutritional needs. Current Diet Order/ Nutrition Support [facility] soft [facility] Pertinent Medications oscal w/ vit d, colace, zocor Pertinent Labs 12/23: cholesterol 204 Nutritional Hx/Data Height 1.63 m Height (Calculated Centimeters) 162.6 Current Weight (lbs) 63.503 kg Weight (Calculated Kilograms) 63.5 Weight (Calculated Grams) 56123.9 [place] Body Weight 120 lb Body Mass Index (BMI) 24.0 Weight Status Approriate GI Symptoms GI Symptoms None Last BM none noted Difficult in: None Food Allergies No Skin Integrity/Comment: jose lees 18 Current %PO Good (75-100%) Estimated Nutritional Goals BEE in Kcals: Using Current wt Calories/Kcals/Kg 25-30 Kcals Calculated 6212-4354 Protein: Using Current wt Protein g/k.0 Protein Calculated 64 g Fluid: ml 4256-4327 (1 ml/kcal) Nutritional Problem No current Nutrition Prob Problem no nutrition dx at this time Malnutrition Alert Is there a minimum of two criteria No selected? Query Text:Check all the applicable criteria. A minimum of two criteria are recommended for diagnosis of either severe or non-severe malnutrition. Malnutrition Related to Morbid Obesity Malnutrition related to morbid obesity No Intervention/Recommendation Comments 1. Continue with [facility] soft [facility] diet as ordered. 2. Monitor PO intake, wt, labs and skin integrity 3. F/U as low risk in 7 days, 01/01 Expected Outcomes/Goals Expected Outcomes/Goals 1. PO intake to meet at least 75% of nutritional needs. 2. Wt stability, skin to remain intact, labs to approach WNL. REviewed by Rachna Malik RD
--- NOTE | 2017-12-30 03:48 | Progress Notes ---
DATE: 12/29/2017 PSYCHIATRIC PROGRESS NOTE SUBJECTIVE: Staff was spoken to. The patient is interviewed. Mood is noted to be irritable. Affect is constricted. The patient has paranoid delusions, but denies any command hallucinations. Insight and judgment at this time are noted to be still impaired. Coping skills are noted to very poor. The patient is not able to contract for safety. PLAN: To continue the patient with the supportive therapy, encouraged the patient to verbalize the concerns rather than to act out. JOB# [id number]
[2017-12-30] MEDS: Calcium Carb/Vit D 500 mg/200 U Tab PO SCH ×2 (09:45→17:53)
--- NOTE | 2017-12-30 23:50 | Progress Notes ---
DATE: 12/30/2017 PSYCHIATRIC PROGRESS NOTE SUBJECTIVE: Staff was spoken to. The patient is interviewed. Mood is noted to be irritable. Affect is constricted. Insight and judgment at this time are noted to be still impaired. Impulse control is noted to be limited. Coping skills are also noted to be limited. The patient has been having difficult time to cope with the stress. No side effects to the medications are noted. The patient is currently on the olanzapine and has been able to tolerate the medication. ASSESSMENT: The patient is still depressed and paranoid. PLAN: To continue the patient with the supportive therapy and followup. [facility]# [id number]
[2017-12-31] MEDS: Calcium Carb/Vit D 500 mg/200 U Tab PO SCH ×2 (08:46→16:32)
--- NOTE | 2017-12-31 22:06 | Progress Notes ---
DATE: 12/31/2017 SUBJECTIVE: Staff was spoken to. The patient is interviewed. Mood is noted to be irritable. Affect is constricted. Insight and judgment at this time are noted to be still impaired. Impulse control is noted to be limited. Coping skills are noted to be limited. The patient has been having difficult time to cope with the stress. No side effects to the medications are noted. ASSESSMENT: The patient is still impulsive. PLAN: To continue the patient with supportive therapy and encouraged the patient to verbalize the concerns rather than to act out. The patient is not ready to be discharged to a lower level of care yet. [facility]# [id number]
[2018-01-01] MEDS: Calcium Carb/Vit D 500 mg/200 U Tab PO SCH ×2 (08:41→16:29)
--- NOTE | 2018-01-01 11:29 | General Progress Note ---
Subjective - Review of Systems Service Date: 01/01/18 Subjective: Patient is confused, calm. Objective - Results Result Diagrams: 12/23/17 07:09 12/23/17 07:09 Recent Labs: Laboratory Last Values WBC 7.2 Th/cmm (4.8-10.8) 12/23/17 07:09 RBC 5.60 Mil/cmm (3.80-5.20) H 12/23/17 07:09 Hgb 15.8 gm/dL (12-16) 12/23/17 07:09 Hct 46.5 % (41.0-60) 12/23/17 07:09 MCV 83.1 fl (81-100) 12/23/17 07:09 MCH 28.3 pg (27.0-31.0) 12/23/17 07:09 MCHC Differential 34.0 pg (28.0-36.0) 12/23/17 07:09 RDW 13.4 % (11.5-20.0) 12/23/17 07:09 Plt Count 239 Th/cmm (150-400) 12/23/17 07:09 MPV 7.4 fl 12/23/17 07:09 Neutrophils % 69.2 % (40.0-80.0) 12/23/17 07:09 Lymphocytes % 20.5 % (20.0-50.0) 12/23/17 07:09 Monocytes % 7.3 % (2.0-10.0) 12/23/17 07:09 Eosinophils % 2.7 % (0.0-5.0) 12/23/17 07:09 Basophils % 0.3 % (0.0-2.0) 12/23/17 07:09 Sodium 140 mEq/L (136-145) 12/23/17 07:09 Potassium 3.6 mEq/L (3.5-5.1) 12/23/17 07:09 Chloride 105 mEq/L (98-107) 12/23/17 07:09 Carbon Dioxide 24.9 mEq/L (21.0-31.0) 12/23/17 07:09 Anion Gap 13.7 (7.0-16.0) 12/23/17 07:09 BUN 24 mg/dL (7-25) 12/23/17 07:09 Creatinine 0.9 mg/dL (0.6-1.2) 12/23/17 07:09 Est GFR ( Amer) TNP 12/23/17 07:09 Est GFR (Non-Af Amer) TNP 12/23/17 07:09 BUN/Creatinine Ratio 26.7 12/23/17 07:09 Glucose 94 mg/dL (70-105) 12/23/17 07:09 Calcium 9.2 mg/dL (8.6-10.3) 12/23/17 07:09 Triglycerides 100 mg/dL (<150) 12/23/17 12:01 Cholesterol 204 mg/dL (<200) H 12/23/17 12:01 LDL Cholesterol Direct 111 mg/dL (75-193) 12/23/17 12:01 HDL Cholesterol 61 mg/dL (23-92) 12/23/17 12:01 TSH 2.08 uIU/ml (0.34-5.60) 12/23/17 07:09 - Physical Exam Vitals and I&O: Vital Signs Temp 98.4 F 12/31/17 20:00 Pulse 66 01/01/18 08:41 Resp 19 12/31/17 20:00 BP 169/76 01/01/18 08:41 Pulse Ox 96 12/31/17 20:00 Intake & Output 12/31/17 01/01/18 01/01/18 18:59 06:59 18:59 Intake Total 1400 120 Balance 1400 120 Intake: Oral 1400 120 Other: # Voids 4 3 # Bowel Movements 0 Active Medications: Current Medications Amlodipine Besylate (Norvasc) 10 mg PO DAILY [facility] Stop: 03/01/18 09:59 Last Admin: 01/01/18 08:41 Dose: 10 mg Calcium/Vitamin D (Oscal W/Vitamin D) 1 tab PO BID [facility] Stop: 02/21/18 16:59 Last Admin: 01/01/18 08:41 Dose: 1 tab Docusate Sodium (Colace) 100 mg PO BID [facility] Stop: 02/21/18 16:59 Last Admin: 01/01/18 08:42 Dose: 100 mg Haloperidol Decanoate (Haldol Dec) 12.5 mg IM [id number] [facility]; Protocol Stop: 03/06/18 08:59 Memantine (Namenda) 10 mg PO BID [facility] Stop: 02/21/18 16:59 Last Admin: 01/01/18 08:41 Dose: 10 mg Olanzapine (Zyprexa) 2.5 mg PO HS [facility]; Protocol Stop: 02/21/18 20:59 Last Admin: 12/31/17 21:42 Dose: 2.5 mg Simvastatin (Zocor) 10 mg PO HS [facility]; Protocol Stop: 02/21/18 20:59 Last Admin: 12/31/17 21:42 Dose: 10 mg General: Alert HEENT: Atraumatic Neck: Supple Cardiovascular: Regular rate Abdomen: Bowel sounds Extremities: Other (No edema) Neurological: Other (Unestable gait) Skin: Other (Warm and dry) Psych/Mental Status: Other (Confused) Assessment/Plan - Assessment Assessment: Patient is awake, alert, calm, confused, not oriented. Dx: increased in agitation, Dementia, Schizophrenia, Dyslipemia. - Plan Plan: Patient is follow by Psychiatry, continue with SNF meds. Will continue to monitor. Nutritional Asmnt/Malnutr-PDOC - Dietary Evaluation Malnutrition Findings (Please click <Entered> for more info): Nutritional Asmnt/Malnutrition Start: 12/25/17 13: 59 Text: Status: Complete Freq: Protocol: Document 12/25/17 13:59 OBIE (Rec: 12/25/17 14:09 [email or web address] [email or web address]) Nutritional Asmnt/Malnutrition Patient General Information Nutritional Screening Moderate Risk Diagnosis psychosis Pertinent Medical Hx/Surgical Hx HTN, dyslipidemia, dementia, schizophrenia, CAD Subjective Information Pt eating lunch in bed at time of visit. Pt alert to self and able to self-feed at a slow pace. Nursing noted PO intake: 75%, meeting 100% of nutritional needs. Current Diet Order/ Nutrition Support [facility] Pertinent Medications oscal w/ vit d, colace, zocor Pertinent Labs 12/23: cholesterol 204 Nutritional Hx/Data Height 1.63 m Height (Calculated Centimeters) 162.6 Current Weight (lbs) 63.503 kg Weight (Calculated Kilograms) 63.5 Weight (Calculated Grams) 41608.9 [place] Body Weight 120 lb Body Mass Index (BMI) 24.0 Weight Status Approriate GI Symptoms GI Symptoms None Last BM none noted Difficult in: None Food Allergies No Skin Integrity/Comment: jose lees 18 Current %PO Good (75-100%) Estimated Nutritional Goals BEE in Kcals: Using Current wt Calories/Kcals/Kg 25-30 Kcals Calculated 8851-4310 Protein: Using Current wt Protein g/k.0 Protein Calculated 64 g Fluid: ml 2338-9665 (1 ml/kcal) Nutritional Problem No current Nutrition Prob Problem no nutrition dx at this time Malnutrition Alert Is there a minimum of two criteria No selected? Query Text:Check all the applicable criteria. A minimum of two criteria are recommended for diagnosis of either severe or non-severe malnutrition. Malnutrition Related to Morbid Obesity Malnutrition related to morbid obesity No Intervention/Recommendation Comments 1. Continue with [facility] diet as ordered. 2. Monitor PO intake, wt, labs and skin integrity 3. F/U as low risk in 7 days, 01/01 Expected Outcomes/Goals Expected Outcomes/Goals 1. PO intake to meet at least 75% of nutritional needs. 2. Wt stability, skin to remain intact, labs to approach WNL. REviewed by Rachna Malik RD
--- NOTE | 2018-01-01 13:17 | Progress Notes ---
DATE: 01/01/2018 SUBJECTIVE: Staff was spoken to. The patient is interviewed. Mood is noted to be less irritable. Affect is appropriate. The patient has paranoia, but denies any command hallucinations. No side effects to the medications are noted and the patient has been isolative and withdrawn with very limited participation in the groups and no aggressive behavior is noted today. ASSESSMENT: The patient is stabilizing. PLAN: To continue the patient with the supportive therapy and work with the disease case manager for possible discharge of the patient possibly tomorrow. JOB# [id number]
[2018-01-02] MEDS: Calcium Carb/Vit D 500 mg/200 U Tab PO SCH ×2 (08:36→16:30)
--- NOTE | 2018-01-02 09:10 | General Progress Note ---
Subjective - Review of Systems Service Date: 01/02/18 Subjective: Patient is confused, calm. Objective - Results Result Diagrams: 12/23/17 07:09 12/23/17 07:09 Recent Labs: Laboratory Last Values WBC 7.2 Th/cmm (4.8-10.8) 12/23/17 07:09 RBC 5.60 Mil/cmm (3.80-5.20) H 12/23/17 07:09 Hgb 15.8 gm/dL (12-16) 12/23/17 07:09 Hct 46.5 % (41.0-60) 12/23/17 07:09 MCV 83.1 fl (81-100) 12/23/17 07:09 MCH 28.3 pg (27.0-31.0) 12/23/17 07:09 MCHC Differential 34.0 pg (28.0-36.0) 12/23/17 07:09 RDW 13.4 % (11.5-20.0) 12/23/17 07:09 Plt Count 239 Th/cmm (150-400) 12/23/17 07:09 MPV 7.4 fl 12/23/17 07:09 Neutrophils % 69.2 % (40.0-80.0) 12/23/17 07:09 Lymphocytes % 20.5 % (20.0-50.0) 12/23/17 07:09 Monocytes % 7.3 % (2.0-10.0) 12/23/17 07:09 Eosinophils % 2.7 % (0.0-5.0) 12/23/17 07:09 Basophils % 0.3 % (0.0-2.0) 12/23/17 07:09 Sodium 140 mEq/L (136-145) 12/23/17 07:09 Potassium 3.6 mEq/L (3.5-5.1) 12/23/17 07:09 Chloride 105 mEq/L (98-107) 12/23/17 07:09 Carbon Dioxide 24.9 mEq/L (21.0-31.0) 12/23/17 07:09 Anion Gap 13.7 (7.0-16.0) 12/23/17 07:09 BUN 24 mg/dL (7-25) 12/23/17 07:09 Creatinine 0.9 mg/dL (0.6-1.2) 12/23/17 07:09 Est GFR ( Amer) TNP 12/23/17 07:09 Est GFR (Non-Af Amer) TNP 12/23/17 07:09 BUN/Creatinine Ratio 26.7 12/23/17 07:09 Glucose 94 mg/dL (70-105) 12/23/17 07:09 Calcium 9.2 mg/dL (8.6-10.3) 12/23/17 07:09 Triglycerides 100 mg/dL (<150) 12/23/17 12:01 Cholesterol 204 mg/dL (<200) H 12/23/17 12:01 LDL Cholesterol Direct 111 mg/dL (75-193) 12/23/17 12:01 HDL Cholesterol 61 mg/dL (23-92) 12/23/17 12:01 TSH 2.08 uIU/ml (0.34-5.60) 12/23/17 07:09 - Physical Exam Vitals and I&O: Vital Signs Temp 97.3 F 01/02/18 06:44 Pulse 103 01/02/18 08:35 Resp 19 01/02/18 06:44 BP 110/79 01/02/18 08:35 Pulse Ox 95 01/02/18 06:44 Intake & Output 01/01/18 01/02/18 01/02/18 18:59 06:59 18:59 Intake Total 900 120 Balance 900 120 Intake: Oral 900 120 Other: # Voids 3 3 # Bowel Movements 1 Active Medications: Current Medications Amlodipine Besylate (Norvasc) 10 mg PO DAILY [facility] Stop: 03/01/18 09:59 Last Admin: 01/02/18 08:35 Dose: 10 mg Calcium/Vitamin D (Oscal W/Vitamin D) 1 tab PO BID [facility] Stop: 02/21/18 16:59 Last Admin: 01/02/18 08:36 Dose: 1 tab Docusate Sodium (Colace) 100 mg PO BID [facility] Stop: 02/21/18 16:59 Last Admin: 01/02/18 08:35 Dose: 100 mg Haloperidol Decanoate (Haldol Dec) 12.5 mg IM [id number] [facility]; Protocol Stop: 03/06/18 08:59 Memantine (Namenda) 10 mg PO BID [facility] Stop: 02/21/18 16:59 Last Admin: 01/02/18 08:36 Dose: 10 mg Olanzapine (Zyprexa) 2.5 mg PO HS [facility]; Protocol Stop: 02/21/18 20:59 Last Admin: 01/01/18 21:17 Dose: 2.5 mg Simvastatin (Zocor) 10 mg PO HS [facility]; Protocol Stop: 02/21/18 20:59 Last Admin: 01/01/18 21:17 Dose: 10 mg General: Alert HEENT: Atraumatic Neck: Supple Cardiovascular: Regular rate Abdomen: Bowel sounds Extremities: Other (No edema) Neurological: Other (Unestable gait) Skin: Other (Warm and dry) Psych/Mental Status: Other (Confused) Assessment/Plan - Assessment Assessment: Patient is awake, alert, calm, confused, not oriented. Dx: increased in agitation, Dementia, Schizophrenia, Dyslipemia. - Plan Plan: Patient is follow by Psychiatry, continue with SNF meds. Will continue to monitor. Nutritional Asmnt/Malnutr-PDOC - Dietary Evaluation Malnutrition Findings (Please click <Entered> for more info): Nutritional Asmnt/Malnutrition Start: 12/25/17 13: 59 Text: Status: Complete Freq: Protocol: Document 12/25/17 13:59 OBIE (Rec: 12/25/17 14:09 [email or web address] [email or web address]) Nutritional Asmnt/Malnutrition Patient General Information Nutritional Screening Moderate Risk Diagnosis psychosis Pertinent Medical Hx/Surgical Hx HTN, dyslipidemia, dementia, schizophrenia, CAD Subjective Information Pt eating lunch in bed at time of visit. Pt alert to self and able to self-feed at a slow pace. Nursing noted PO intake: 75%, meeting 100% of nutritional needs. Current Diet Order/ Nutrition Support [facility] Pertinent Medications oscal w/ vit d, colace, zocor Pertinent Labs 12/23: cholesterol 204 Nutritional Hx/Data Height 1.63 m Height (Calculated Centimeters) 162.6 Current Weight (lbs) 63.503 kg Weight (Calculated Kilograms) 63.5 Weight (Calculated Grams) 97087.9 [place] Body Weight 120 lb Body Mass Index (BMI) 24.0 Weight Status Approriate GI Symptoms GI Symptoms None Last BM none noted Difficult in: None Food Allergies No Skin Integrity/Comment: jose lees 18 Current %PO Good (75-100%) Estimated Nutritional Goals BEE in Kcals: Using Current wt Calories/Kcals/Kg 25-30 Kcals Calculated 3371-9998 Protein: Using Current wt Protein g/k.0 Protein Calculated 64 g Fluid: ml 6751-2387 (1 ml/kcal) Nutritional Problem No current Nutrition Prob Problem no nutrition dx at this time Malnutrition Alert Is there a minimum of two criteria No selected? Query Text:Check all the applicable criteria. A minimum of two criteria are recommended for diagnosis of either severe or non-severe malnutrition. Malnutrition Related to Morbid Obesity Malnutrition related to morbid obesity No Intervention/Recommendation Comments 1. Continue with [facility] diet as ordered. 2. Monitor PO intake, wt, labs and skin integrity 3. F/U as low risk in 7 days, 01/01 Expected Outcomes/Goals Expected Outcomes/Goals 1. PO intake to meet at least 75% of nutritional needs. 2. Wt stability, skin to remain intact, labs to approach WNL. REviewed by Rachna Malik RD
[2018-01-03] MEDS: Calcium Carb/Vit D 500 mg/200 U Tab PO SCH (08:51)
--- NOTE | 2018-01-03 10:47 | General Progress Note ---
Subjective - Review of Systems Service Date: 01/03/18 Subjective: Patient is confused, calm. Objective - Results Result Diagrams: 12/23/17 07:09 12/23/17 07:09 Recent Labs: Laboratory Last Values WBC 7.2 Th/cmm (4.8-10.8) 12/23/17 07:09 RBC 5.60 Mil/cmm (3.80-5.20) H 12/23/17 07:09 Hgb 15.8 gm/dL (12-16) 12/23/17 07:09 Hct 46.5 % (41.0-60) 12/23/17 07:09 MCV 83.1 fl (81-100) 12/23/17 07:09 MCH 28.3 pg (27.0-31.0) 12/23/17 07:09 MCHC Differential 34.0 pg (28.0-36.0) 12/23/17 07:09 RDW 13.4 % (11.5-20.0) 12/23/17 07:09 Plt Count 239 Th/cmm (150-400) 12/23/17 07:09 MPV 7.4 fl 12/23/17 07:09 Neutrophils % 69.2 % (40.0-80.0) 12/23/17 07:09 Lymphocytes % 20.5 % (20.0-50.0) 12/23/17 07:09 Monocytes % 7.3 % (2.0-10.0) 12/23/17 07:09 Eosinophils % 2.7 % (0.0-5.0) 12/23/17 07:09 Basophils % 0.3 % (0.0-2.0) 12/23/17 07:09 Sodium 140 mEq/L (136-145) 12/23/17 07:09 Potassium 3.6 mEq/L (3.5-5.1) 12/23/17 07:09 Chloride 105 mEq/L (98-107) 12/23/17 07:09 Carbon Dioxide 24.9 mEq/L (21.0-31.0) 12/23/17 07:09 Anion Gap 13.7 (7.0-16.0) 12/23/17 07:09 BUN 24 mg/dL (7-25) 12/23/17 07:09 Creatinine 0.9 mg/dL (0.6-1.2) 12/23/17 07:09 Est GFR ( Amer) TNP 12/23/17 07:09 Est GFR (Non-Af Amer) TNP 12/23/17 07:09 BUN/Creatinine Ratio 26.7 12/23/17 07:09 Glucose 94 mg/dL (70-105) 12/23/17 07:09 Calcium 9.2 mg/dL (8.6-10.3) 12/23/17 07:09 Triglycerides 100 mg/dL (<150) 12/23/17 12:01 Cholesterol 204 mg/dL (<200) H 12/23/17 12:01 LDL Cholesterol Direct 111 mg/dL (75-193) 12/23/17 12:01 HDL Cholesterol 61 mg/dL (23-92) 12/23/17 12:01 TSH 2.08 uIU/ml (0.34-5.60) 12/23/17 07:09 - Physical Exam Vitals and I&O: Vital Signs Temp 98.3 F 01/03/18 07:05 Pulse 75 01/03/18 08:51 Resp 18 01/03/18 07:05 BP 113/72 01/03/18 08:51 Pulse Ox 97 01/03/18 07:05 Intake & Output 01/02/18 01/03/18 01/03/18 18:59 06:59 18:59 Intake Total 900 Balance 900 Intake: Oral 900 Other: # Voids 3 # Bowel Movements 1 Active Medications: Current Medications Amlodipine Besylate (Norvasc) 10 mg PO DAILY [facility] Stop: 03/01/18 09:59 Last Admin: 01/03/18 08:51 Dose: 10 mg Calcium/Vitamin D (Oscal W/Vitamin D) 1 tab PO BID [facility] Stop: 02/21/18 16:59 Last Admin: 01/03/18 08:51 Dose: 1 tab Docusate Sodium (Colace) 100 mg PO BID [facility] Stop: 02/21/18 16:59 Last Admin: 01/03/18 08:50 Dose: 100 mg Haloperidol Decanoate (Haldol Dec) 12.5 mg IM [id number] [facility]; Protocol Stop: 03/06/18 08:59 Memantine (Namenda) 10 mg PO BID [facility] Stop: 02/21/18 16:59 Last Admin: 01/03/18 08:50 Dose: 10 mg Olanzapine (Zyprexa) 2.5 mg PO HS [facility]; Protocol Stop: 02/21/18 20:59 Last Admin: 01/02/18 20:52 Dose: 2.5 mg Simvastatin (Zocor) 10 mg PO HS [facility]; Protocol Stop: 02/21/18 20:59 Last Admin: 01/02/18 20:52 Dose: 10 mg General: Alert HEENT: Atraumatic Neck: Supple Cardiovascular: Regular rate Abdomen: Bowel sounds Extremities: Other (No edema) Neurological: Other (Unestable gait) Skin: Other (Warm and dry) Psych/Mental Status: Other (Confused) Assessment/Plan - Assessment Assessment: Patient is awake, alert, calm, confused, not oriented. Dx: increased in agitation, Dementia, Schizophrenia, Dyslipemia. - Plan Plan: Patient is follow by Psychiatry, continue with SNF meds. Will continue to monitor. Nutritional Asmnt/Malnutr-PDOC - Dietary Evaluation Malnutrition Findings (Please click <Entered> for more info): Nutritional Asmnt/Malnutrition Start: 12/25/17 13: 59 Text: Status: Complete Freq: Protocol: Document 12/25/17 13:59 [email or web address] (Rec: 12/25/17 14:09 [email or web address] [email or web address]) Nutritional Asmnt/Malnutrition Patient General Information Nutritional Screening Moderate Risk Diagnosis psychosis Pertinent Medical Hx/Surgical Hx HTN, dyslipidemia, dementia, schizophrenia, CAD Subjective Information Pt eating lunch in bed at time of visit. Pt alert to self and able to self-feed at a slow pace. Nursing noted PO intake: 75%, meeting 100% of nutritional needs. Current Diet Order/ Nutrition Support [facility] Pertinent Medications oscal w/ vit d, colace, zocor Pertinent Labs 12/23: cholesterol 204 Nutritional Hx/Data Height 1.63 m Height (Calculated Centimeters) 162.6 Current Weight (lbs) 63.503 kg Weight (Calculated Kilograms) 63.5 Weight (Calculated Grams) 37666.9 [place] Body Weight 120 lb Body Mass Index (BMI) 24.0 Weight Status Approriate GI Symptoms GI Symptoms None Last BM none noted Difficult in: None Food Allergies No Skin Integrity/Comment: intact, jose 18 Current %PO Good (75-100%) Estimated Nutritional Goals BEE in Kcals: Using Current wt Calories/Kcals/Kg 25-30 Kcals Calculated 5593-0689 Protein: Using Current wt Protein g/k.0 Protein Calculated 64 g Fluid: ml 9951-3472 (1 ml/kcal) Nutritional Problem No current Nutrition Prob Problem no nutrition dx at this time Malnutrition Alert Is there a minimum of two criteria No selected? Query Text:Check all the applicable criteria. A minimum of two criteria are recommended for diagnosis of either severe or non-severe malnutrition. Malnutrition Related to Morbid Obesity Malnutrition related to morbid obesity No Intervention/Recommendation Comments 1. Continue with [facility] diet as ordered. 2. Monitor PO intake, wt, labs and skin integrity 3. F/U as low risk in 7 days, 01/01 Expected Outcomes/Goals Expected Outcomes/Goals 1. PO intake to meet at least 75% of nutritional needs. 2. Wt stability, skin to remain intact, labs to approach WNL. REviewed by Rachna Malik RD
--- NOTE | 2018-01-03 11:04 | Progress Notes ---
DATE: 01/02/2018 PSYCHIATRIC PROGRESS NOTE SUBJECTIVE: Staff was spoken to. The patient is interviewed. Chart is reviewed. Mood is noted to be irritable. Affect is constricted. Insight and judgment at this time are noted to be still impaired. Impulse control seems to be limited. The patient, however, has been having frustration. The patient's sleep is noted to be little bit okay with the medication. Appetite is noted to be improving. The patient, however, has been getting easily frustrated for being in here. ASSESSMENT: The patient is still paranoid. PLAN: To continue the patient with the supportive therapy. I encouraged the patient to verbalize the concerns rather than to act out. [facility]# [id number]
--- NOTE | 2018-01-03 22:21 | Progress Notes ---
DATE: 01/03/2018 PSYCHIATRIC PROGRESS NOTE SUBJECTIVE: Staff was spoken to. The patient is interviewed. Mood is noted to be anxious. Affect is appropriate. Not suicidal or homicidal. Insight and judgment are improving. Impulse control seems to be fair. Coping skills are also noted to be fair. No major behavioral problems are noted. ASSESSMENT: The patient is stabilizing. PLAN: To discharge this patient today and follow up on an outpatient basis. [facility]# [id number]
== END 2018-01-03 15:10 | DRG 885 ==
LOC: ER 05:53 → GERO 09:14
DX: F20.0 Paranoid schizophrenia (principal); F03.91 Unspecified dementia, unspecified severity, with behavioral disturbance; E78.5 Hyperlipidemia, unspecified; I10 Essential (primary) hypertension; J44.9 Chronic obstructive pulmonary disease, unspecified; F41.9 Anxiety disorder, unspecified; I25.10 Atherosclerotic heart disease of native coronary artery without angina pectoris; Z79.899 Other long term (current) drug therapy
CPT/HCPCS: 36415-UA; 80048-TC; 80061-TC; 83036-90; 84443-TC; 85025-TC; 93005; Z7610